=== PATIENT | male | born 1980 | race Caucasian/White ===

== ENCOUNTER 2021-08-27 18:28 | Inpatient (IN) | payer MEDICAID ==
[~2021-08-27] VITALS: Ht 182.9 cm; Wt 79.2 kg
[2021-08-27] MEDS ORDERED: GuaiFENesin/D-METHORPHAN [SUGAR-FREE] 200-20MG/10 ML SYRUP UDCUP PO PRN (22:15)
[2021-08-27] MEDS ORDERED: LOPERAMIDE HCL 2 MG CAPSULE PO PRN (22:15)
[2021-08-27] MEDS ORDERED: CYANOCOBALAMIN 1,000 MCG/ML VIAL IM ONE (22:15)
[2021-08-27] MEDS ORDERED: ChlordiazePOXIDE HCL 25 MG CAPSULE PO PRN (22:15)
[2021-08-27] MEDS ORDERED: THIAMINE 100 MG TABLET PO SCH (22:15)
[2021-08-27 22:30] VITALS: BP 128/74
[2021-08-27 23:01] VITALS: BP 128/74
[2021-08-27 23:30] VITALS: BP 124/90
[2021-08-27] MEDS ORDERED: QUET200T PO (23:41)
[2021-08-27] MEDS ORDERED: GABA-1181 PO (23:42)
[2021-08-27] MEDS ORDERED: LISI-663 PO (23:44)
[2021-08-27] MEDS ORDERED: AMLO-257 PO (23:45)
[2021-08-27] MEDS ORDERED: MIRT30 PO (23:46)
[2021-08-28] VITALS (11 sets, daily range): BP systolic 115–137; BP diastolic 76–97
[2021-08-28] MEDS ORDERED: PNEUMOCOCCAL VACCINE POLYVALENT 0.5 ML VIAL [PPSV23] IM. ONE (02:15)
[2021-08-28 06:59] LABS: BASOPHILS % (AUTO) 0.4 % (0.0-2.0); EOSINOPHILS % (AUTO) 2.9 % (1.0-6.0); HEMATOCRIT 46.1 % (41-53); HEMOGLOBIN 15.8 g/dL (13.5-17.5); LYMPHOCYTES # (AUTO) 1.6 K/uL (1.0-4.8); MEAN CORPUSCULAR HEMOGLOBIN 31.5 pg (26.0-34.0); MEAN CORPUSCULAR HGB CONC 34.3 G/dL (31.0-37.0); MEAN CORPUSCULAR VOLUME 92 fL (80-100); MONOCYTES # (AUTO) 0.5 K/uL (0.1-1.0); MONOCYTES % (AUTO) 7.2 % (2.0-9.0); NEUTROPHILS % (AUTO) 63.5 % (40.0-70.0); PLATELET COUNT (AUTO) 161 K/uL (150-450); RED BLOOD CELL COUNT(AUTO) 5.01 MIL/uL (4.50-5.90); RED CELL DISTRIBUTION WIDTH 14.5 % (11.5-14.5)
[2021-08-28] MEDS ORDERED: ChlordiazePOXIDE HCL 25 MG CAPSULE PO PRN (07:00)
[2021-08-28 07:23] LABS: ALANINE AMINOTRANSFERASE 99 U/L (12-78); ALBUMIN 3.9 g/dL (3.4-5.0); ALKALINE PHOSPHATASE 58 U/L (46-116); ANION GAP 9 mmol/L (8-16); ASPARTATE AMINOTRANSFERASE 34 U/L (15-37); BILIRUBIN,TOTAL 0.9 mg/dL (0.1-1.0); CALCIUM, TOTAL 9.6 mg/dL (8.8-10.5); CARBON DIOXIDE 27 mmol/L (22-29); CHLORIDE 100 mmol/L (98-107); CHOL/HDL RATIO 2.9 (4.2-7.3); CHOLESTEROL 209 mg/dL (131-200); CREATININE 0.69 mg/dL (0.60-1.30); FREE T4 (FREE THYROXINE) 1.04 ng/dL (0.76-1.46); GLOMERULAR FILTR. RATE CALC > 60 mL/min (>60); GLUCOSE,RANDOM 106 mg/dL (70-110); HDL CHOLESTEROL 71 mg/dL (40-60); LDL CHOL (CALC.) 121 mg/dL (0-130); POTASSIUM 3.7 mmol/L (3.5-5.1); SODIUM SERUM 136 mmol/L (136-145); THYROID STIMULATING HORMONE 2.01 uIU/mL (0.36-3.74); TOTAL PROTEIN, SERUM 7.8 g/dL (6.4-8.2); TRIGLYCERIDES 86 mg/dL (15-150); UREA NITROGEN, BLOOD 11 mg/dL (7-18)
[2021-08-28] MEDS ORDERED: BENZOCAINE/MENTHOL LOZENGE PO PRN (08:15)
[2021-08-28] MEDS ORDERED: MAGNESIUM HYDROXIDE SUSPENSION 30 ML UDCUP PO PRN (08:15)
[2021-08-28] MEDS ORDERED: OMEPRAZOLE 20 MG CAPSULE PO PRN (08:15)
[2021-08-28] MEDS ORDERED: CloNIDine HCL 0.1 MG TABLET PO PRN (08:15)
[2021-08-28] MEDS ORDERED: BACITRACIN 28 GM OINTMENT TP PRN (08:15)
[2021-08-28] MEDS ORDERED: LOPERAMIDE HCL 2 MG CAPSULE PO PRN (08:15)
[2021-08-28] MEDS ORDERED: DOCUSATE SODIUM 100 MG CAPSULE PO PRN (08:15)
[2021-08-28] MEDS ORDERED: ACETAMINOPHEN 325 MG TABLET PO PRN (08:15)
[2021-08-28] MEDS ORDERED: PETROLATUM,WHITE 28 GM JELLY TP PRN (08:15)
[2021-08-28] MEDS ORDERED: ONDANSETRON HCL 4 MG TABLET PO PRN (08:15)
[2021-08-28] MEDS ORDERED: MAG HYDROX/AL HYDROX/SIMETH ES 30 ML SUSPENSION UDCUP PO PRN (08:15)
[2021-08-28] MEDS ORDERED: ALBUTEROL SULFATE HFA 90 MCG/PUFF 8 GM INHALER IH PRN (08:15)
[2021-08-28] MEDS ORDERED: IBUPROFEN 600 MG TABLET PO PRN (08:15)
[2021-08-28] MEDS: THIAMINE 100 MG TABLET PO SCH ×2 (08:26→16:09)
[2021-08-28] MEDS: FOLIC ACID 1 MG TABLET PO SCH (08:26)
[2021-08-28] MEDS: ChlordiazePOXIDE HCL 25 MG CAPSULE PO SCH ×4 (08:26→20:05)
[2021-08-28] MEDS: MULTIVITAMINS WITH MINERALS, THERAPEUTIC TABLET PO SCH (08:26)
[2021-08-28] MEDS ORDERED: ZOLPIDEM TARTRATE 10 MG TABLET PO PRN (21:15)
[2021-08-28] MEDS: MIRTAZAPINE 30 MG TABLET PO SCH (22:04)
[2021-08-28] MEDS: QUEtiapine FUMARATE 200 MG TABLET PO SCH (22:04)
[2021-08-29 01:37] VITALS: BP 121/100
[2021-08-29 01:38] VITALS: BP 121/100
[2021-08-29 08:12] VITALS: BP 149/86
[2021-08-29] MEDS: LISINOPRIL 20 MG TABLET PO SCH (08:27)
[2021-08-29] MEDS: FOLIC ACID 1 MG TABLET PO SCH (08:27)
[2021-08-29] MEDS: MULTIVITAMINS WITH MINERALS, THERAPEUTIC TABLET PO SCH (08:28)
[2021-08-29] MEDS: CITALOPRAM HYDROBROMIDE 20 MG TABLET PO SCH (08:28)
[2021-08-29] MEDS: ChlordiazePOXIDE HCL 25 MG CAPSULE PO SCH ×4 (08:28→21:12)
[2021-08-29] MEDS: THIAMINE 100 MG TABLET PO SCH ×2 (08:28→17:12)
[2021-08-29] MEDS: AmLODIPine BESYLATE 5 MG TABLET PO SCH (08:28)
[2021-08-29] MEDS: GABAPENTIN 300 MG CAPSULE PO SCH ×5 (08:28→17:12)
[2021-08-29 09:16] VITALS: BP 149/86
[2021-08-29] MEDS: NICOTINE 21 MG/24 HOUR PATCH TD PRN (13:23)
[2021-08-29 16:07] VITALS: BP 139/90
[2021-08-29 17:26] VITALS: BP 139/90
[2021-08-29] MEDS: MIRTAZAPINE 30 MG TABLET PO SCH (21:12)
[2021-08-29] MEDS: QUEtiapine FUMARATE 200 MG TABLET PO SCH (21:12)
[2021-08-30 01:03] VITALS: BP 105/69
[2021-08-30] MEDS ORDERED: ChlordiazePOXIDE HCL 10 MG CAPSULE PO PRN (07:00)
[2021-08-30 08:05] VITALS: BP 107/80
[2021-08-30] MEDS: MULTIVITAMINS WITH MINERALS, THERAPEUTIC TABLET PO SCH (08:12)
[2021-08-30] MEDS: ChlordiazePOXIDE HCL 10 MG CAPSULE PO SCH ×4 (08:12→21:17)
[2021-08-30] MEDS: LISINOPRIL 20 MG TABLET PO SCH (08:12)
[2021-08-30] MEDS: CITALOPRAM HYDROBROMIDE 20 MG TABLET PO SCH (08:12)
[2021-08-30] MEDS: AmLODIPine BESYLATE 5 MG TABLET PO SCH (08:13)
[2021-08-30] MEDS: FOLIC ACID 1 MG TABLET PO SCH (08:13)
[2021-08-30] MEDS: THIAMINE 100 MG TABLET PO SCH ×2 (08:13→16:39)
[2021-08-30] MEDS: GABAPENTIN 300 MG CAPSULE PO SCH ×3 (08:13→16:39)
[2021-08-30] MEDS: NICOTINE 21 MG/24 HOUR PATCH TD PRN (13:19)
[2021-08-30 16:20] VITALS: BP 111/73
[2021-08-30] MEDS: MIRTAZAPINE 30 MG TABLET PO SCH (21:16)
[2021-08-30] MEDS: QUEtiapine FUMARATE 200 MG TABLET PO SCH (21:17)
[2021-08-31 05:26] VITALS: BP 115/75
[2021-08-31] MEDS ORDERED: ChlordiazePOXIDE HCL 10 MG CAPSULE PO PRN (07:00)
[2021-08-31 08:07] VITALS: BP 129/79
[2021-08-31] MEDS: AmLODIPine BESYLATE 5 MG TABLET PO SCH (08:27)
[2021-08-31] MEDS: FOLIC ACID 1 MG TABLET PO SCH (08:27)
[2021-08-31] MEDS: LISINOPRIL 20 MG TABLET PO SCH (08:27)
[2021-08-31] MEDS: MULTIVITAMINS WITH MINERALS, THERAPEUTIC TABLET PO SCH (08:27)
[2021-08-31] MEDS: CITALOPRAM HYDROBROMIDE 20 MG TABLET PO SCH (08:27)
[2021-08-31] MEDS: GABAPENTIN 300 MG CAPSULE PO SCH ×3 (08:28→16:21)
[2021-08-31] MEDS: THIAMINE 100 MG TABLET PO SCH ×2 (08:28→16:21)
[2021-08-31] MEDS: HydrOXYzine PAMOATE 50 MG CAPSULE PO PRN (10:14)
[2021-08-31] MEDS: NICOTINE 21 MG/24 HOUR PATCH TD PRN (10:35)
[2021-08-31 16:11] VITALS: BP 135/87
[2021-08-31] MEDS: MIRTAZAPINE 30 MG TABLET PO SCH (21:02)
[2021-08-31] MEDS: QUEtiapine FUMARATE 200 MG TABLET PO SCH (21:04)
[2021-09-01 00:01] VITALS: BP 106/67
[2021-09-01 07:41] LABS: GLUCOMETER DEV NAME(LOC) POC.BV
[2021-09-01] MEDS: FOLIC ACID 1 MG TABLET PO SCH (08:17)
[2021-09-01] MEDS: THIAMINE 100 MG TABLET PO SCH ×2 (08:17→16:16)
[2021-09-01] MEDS: LISINOPRIL 20 MG TABLET PO SCH (08:17)
[2021-09-01] MEDS: MULTIVITAMINS WITH MINERALS, THERAPEUTIC TABLET PO SCH (08:17)
[2021-09-01] MEDS: GABAPENTIN 300 MG CAPSULE PO SCH ×3 (08:17→16:15)
[2021-09-01] MEDS: AmLODIPine BESYLATE 5 MG TABLET PO SCH (08:17)
[2021-09-01] MEDS: CITALOPRAM HYDROBROMIDE 20 MG TABLET PO SCH (08:18)
[2021-09-01] MEDS: DIVALPROEX SODIUM 500 MG DR TABLET PO SCH ×2 (08:18→16:15)
[2021-09-01] MEDS: HydrOXYzine PAMOATE 50 MG CAPSULE PO PRN (08:18)
[2021-09-01 08:24] VITALS: BP 132/78
[2021-09-01] MEDS: NICOTINE 21 MG/24 HOUR PATCH TD PRN (13:49)
[2021-09-01 16:11] VITALS: BP 118/78
[2021-09-01] MEDS: QUEtiapine FUMARATE 200 MG TABLET PO SCH (21:31)
[2021-09-01] MEDS: MIRTAZAPINE 30 MG TABLET PO SCH (21:31)
[2021-09-02 01:03] VITALS: BP 105/63
[2021-09-02 08:17] VITALS: BP 119/72
[2021-09-02] MEDS: AmLODIPine BESYLATE 5 MG TABLET PO SCH (08:27)
[2021-09-02] MEDS: CITALOPRAM HYDROBROMIDE 20 MG TABLET PO SCH (08:27)
[2021-09-02] MEDS: MULTIVITAMINS WITH MINERALS, THERAPEUTIC TABLET PO SCH (08:27)
[2021-09-02] MEDS: FOLIC ACID 1 MG TABLET PO SCH (08:27)
[2021-09-02] MEDS: DIVALPROEX SODIUM 500 MG DR TABLET PO SCH ×2 (08:28→16:34)
[2021-09-02] MEDS: LISINOPRIL 20 MG TABLET PO SCH (08:28)
[2021-09-02] MEDS: THIAMINE 100 MG TABLET PO SCH ×2 (08:28→16:34)
[2021-09-02] MEDS: GABAPENTIN 300 MG CAPSULE PO SCH ×3 (08:28→16:34)
[2021-09-02] MEDS: NICOTINE 21 MG/24 HOUR PATCH TD PRN (13:37)
[2021-09-02 16:12] VITALS: BP 122/78
[2021-09-02] MEDS: MIRTAZAPINE 30 MG TABLET PO SCH (21:07)
[2021-09-02] MEDS: QUEtiapine FUMARATE 200 MG TABLET PO SCH (21:07)
[2021-09-03 01:22] VITALS: BP 109/70
[2021-09-03 08:28] VITALS: BP 119/68
[2021-09-03] MEDS: FOLIC ACID 1 MG TABLET PO SCH (08:28)
[2021-09-03] MEDS: LISINOPRIL 20 MG TABLET PO SCH (08:28)
[2021-09-03] MEDS: MULTIVITAMINS WITH MINERALS, THERAPEUTIC TABLET PO SCH (08:28)
[2021-09-03] MEDS: THIAMINE 100 MG TABLET PO SCH ×2 (08:28→16:09)
[2021-09-03] MEDS: DIVALPROEX SODIUM 500 MG DR TABLET PO SCH ×2 (08:28→16:09)
[2021-09-03] MEDS: GABAPENTIN 300 MG CAPSULE PO SCH ×3 (08:28→16:09)
[2021-09-03] MEDS: CITALOPRAM HYDROBROMIDE 20 MG TABLET PO SCH (08:28)
[2021-09-03] MEDS: AmLODIPine BESYLATE 5 MG TABLET PO SCH (08:28)
[2021-09-03 16:08] VITALS: BP 117/75
[2021-09-03] MEDS: NICOTINE 21 MG/24 HOUR PATCH TD PRN (16:10)
[2021-09-03] MEDS: QUEtiapine FUMARATE 200 MG TABLET PO SCH (21:24)
[2021-09-03] MEDS: MIRTAZAPINE 30 MG TABLET PO SCH (21:24)
[2021-09-04 00:22] VITALS: BP 118/70
[2021-09-04 09:55] VITALS: BP 123/74
[2021-09-04] MEDS: LISINOPRIL 20 MG TABLET PO SCH (09:58)
[2021-09-04] MEDS: AmLODIPine BESYLATE 5 MG TABLET PO SCH (09:58)
[2021-09-04] MEDS: MULTIVITAMINS WITH MINERALS, THERAPEUTIC TABLET PO SCH (09:58)
[2021-09-04] MEDS: GABAPENTIN 300 MG CAPSULE PO SCH ×3 (09:58→16:54)
[2021-09-04] MEDS: FOLIC ACID 1 MG TABLET PO SCH (09:58)
[2021-09-04] MEDS: DIVALPROEX SODIUM 500 MG DR TABLET PO SCH ×2 (09:58→16:54)
[2021-09-04] MEDS: THIAMINE 100 MG TABLET PO SCH ×2 (09:58→16:54)
[2021-09-04 16:27] VITALS: BP 121/76
[2021-09-04] MEDS: NICOTINE 21 MG/24 HOUR PATCH TD PRN (18:18)
[2021-09-04] MEDS: QUEtiapine FUMARATE 200 MG TABLET PO SCH (21:19)
[2021-09-04] MEDS: MIRTAZAPINE 30 MG TABLET PO SCH (21:19)
[2021-09-05 03:58] VITALS: BP 123/75
[2021-09-05 08:46] VITALS: BP 127/66
[2021-09-05] MEDS: AmLODIPine BESYLATE 5 MG TABLET PO SCH (08:57)
[2021-09-05] MEDS: LISINOPRIL 20 MG TABLET PO SCH (08:57)
[2021-09-05] MEDS: GABAPENTIN 300 MG CAPSULE PO SCH ×3 (08:57→16:49)
[2021-09-05] MEDS: DIVALPROEX SODIUM 500 MG DR TABLET PO SCH ×2 (08:57→16:46)
[2021-09-05] MEDS: MULTIVITAMINS WITH MINERALS, THERAPEUTIC TABLET PO SCH (08:57)
[2021-09-05] MEDS: THIAMINE 100 MG TABLET PO SCH ×2 (08:57→16:46)
[2021-09-05] MEDS: FOLIC ACID 1 MG TABLET PO SCH (08:57)
[2021-09-05 16:46] VITALS: BP 137/94
[2021-09-05] MEDS: QUEtiapine FUMARATE 200 MG TABLET PO SCH (21:20)
[2021-09-06 05:43] VITALS: BP 126/82
[2021-09-06 08:24] VITALS: BP 115/68
[2021-09-06] MEDS: GABAPENTIN 300 MG CAPSULE PO SCH ×3 (09:00→16:14)
[2021-09-06] MEDS: MULTIVITAMINS WITH MINERALS, THERAPEUTIC TABLET PO SCH (09:13)
[2021-09-06] MEDS: LISINOPRIL 20 MG TABLET PO SCH (09:13)
[2021-09-06] MEDS: DIVALPROEX SODIUM 500 MG DR TABLET PO SCH ×2 (09:13→16:14)
[2021-09-06] MEDS: THIAMINE 100 MG TABLET PO SCH ×2 (09:14→16:14)
[2021-09-06] MEDS: AmLODIPine BESYLATE 5 MG TABLET PO SCH (09:14)
[2021-09-06] MEDS: FOLIC ACID 1 MG TABLET PO SCH (09:14)
[2021-09-06 16:43] VITALS: BP 136/82
[2021-09-06] MEDS: NICOTINE 21 MG/24 HOUR PATCH TD PRN (18:54)
[2021-09-06] MEDS: QUEtiapine FUMARATE 200 MG TABLET PO SCH (21:12)
[2021-09-07 08:19] VITALS: BP 115/61
[2021-09-07] MEDS: DIVALPROEX SODIUM 500 MG DR TABLET PO SCH ×2 (08:24→16:11)
[2021-09-07] MEDS: LISINOPRIL 20 MG TABLET PO SCH (08:25)
[2021-09-07] MEDS: AmLODIPine BESYLATE 5 MG TABLET PO SCH (08:25)
[2021-09-07] MEDS: MULTIVITAMINS WITH MINERALS, THERAPEUTIC TABLET PO SCH (08:25)
[2021-09-07] MEDS: GABAPENTIN 300 MG CAPSULE PO SCH ×3 (09:00→16:16)
[2021-09-07 09:55] LABS: GLUCOMETER DEV NAME(LOC) POC.BV
[2021-09-07 16:26] VITALS: BP 115/76
[2021-09-07] MEDS: QUEtiapine FUMARATE 200 MG TABLET PO SCH (20:56)
[2021-09-08 00:39] VITALS: BP 112/69
[2021-09-08 08:09] VITALS: BP 109/68
[2021-09-08] MEDS: DIVALPROEX SODIUM 500 MG DR TABLET PO SCH ×2 (08:29→16:26)
[2021-09-08] MEDS: MULTIVITAMINS WITH MINERALS, THERAPEUTIC TABLET PO SCH (08:29)
[2021-09-08] MEDS: LISINOPRIL 20 MG TABLET PO SCH (08:29)
[2021-09-08] MEDS: AmLODIPine BESYLATE 5 MG TABLET PO SCH (08:29)
[2021-09-08] MEDS: NICOTINE 21 MG/24 HOUR PATCH TD PRN (08:34)
[2021-09-08 16:15] VITALS: BP 133/91
[2021-09-08] MEDS: QUEtiapine FUMARATE 200 MG TABLET PO SCH (21:09)
[2021-09-09 01:11] VITALS: BP 123/79
[2021-09-09 08:13] VITALS: BP 129/70
[2021-09-09] MEDS: LISINOPRIL 20 MG TABLET PO SCH (08:17)
[2021-09-09] MEDS: MULTIVITAMINS WITH MINERALS, THERAPEUTIC TABLET PO SCH (08:17)
[2021-09-09] MEDS: AmLODIPine BESYLATE 5 MG TABLET PO SCH (08:17)
[2021-09-09] MEDS: NICOTINE 21 MG/24 HOUR PATCH TD PRN (08:17)
[2021-09-09] MEDS: DIVALPROEX SODIUM 500 MG DR TABLET PO SCH ×2 (08:17→16:20)
[2021-09-09 16:04] VITALS: BP 124/19
[2021-09-09] MEDS: QUEtiapine FUMARATE 200 MG TABLET PO SCH (20:39)
[2021-09-10 01:06] VITALS: BP 119/76
[2021-09-10 08:17] VITALS: BP 110/65
[2021-09-10] MEDS: MULTIVITAMINS WITH MINERALS, THERAPEUTIC TABLET PO SCH (08:21)
[2021-09-10] MEDS: AmLODIPine BESYLATE 5 MG TABLET PO SCH (08:21)
[2021-09-10] MEDS: LISINOPRIL 20 MG TABLET PO SCH (08:21)
[2021-09-10] MEDS: DIVALPROEX SODIUM 500 MG DR TABLET PO SCH (08:21)
[2021-09-10] MEDS: NICOTINE 21 MG/24 HOUR PATCH TD PRN (08:21)
[2021-09-10] MEDS ORDERED: DIVA-112 PO ×2 (09:01→20:22)
[2021-09-10] MEDS ORDERED: QUET200T PO (09:02)
[2021-09-10] MEDS ORDERED: AMLO-257 PO (20:22)
== END 2021-09-10 09:30 | disposition home or self-care (01) | DRG 754 ==
LOC: B2S 22:00
PROVIDERS: ADMIT Psychiatry & Neurology Psychiatry; ATTEND Psychiatry & Neurology Psychiatry
DX: F32.9 Major depressive disorder, single episode, unspecified (principal); R45.851 Suicidal ideations; F20.9 Schizophrenia, unspecified; F32.A Depression, unspecified; F41.9 Anxiety disorder, unspecified; G47.00 Insomnia, unspecified; K59.00 Constipation, unspecified; F19.10 Other psychoactive substance abuse, uncomplicated; F17.200 Nicotine dependence, unspecified, uncomplicated; Z20.822 Contact with and (suspected) exposure to COVID-19; Z28.21 Immunization not carried out because of patient refusal; Z71.51 Drug abuse counseling and surveillance of drug abuser; Z71.6 Tobacco abuse counseling
CPT/HCPCS: 80053; 80061; 80164; 84439; 84443; 85025; G0480; J3420